=== PATIENT | female | born 1990 | race Caucasian/White ===

== ENCOUNTER → 2018-04-20 | Outpatient (CLI) | payer BC ==
[~2018-04-20] MED LIST: CYCL2DRO OD; PSEU-137 PO
--- NOTE | 2018-04-20 16:41 | Diagnostic Imaging Report ---
PROCEDURE: US Thyroid. TECHNIQUE: Multiple real-time grayscale images were obtained of the thyroid in various projections. INDICATION: Thyromegaly. FINDINGS: The right lobe of the thyroid measures 5.2 x 1.9 x 1.9 cm and the left lobe measures 5.4 x 1.6 x 1.7 cm. There is some mild parenchymal heterogeneity but no discrete thyroid mass is detected. The isthmus is 2 mm in thickness. IMPRESSION: Mild heterogeneity. No discrete thyroid mass is detected. Dictated by: Dictated on workstation # [id number]
== END ==
LOC: RAD 16:03
PROVIDERS: ATTEND Nurse Practitioner Family
DX: E01.0 Iodine-deficiency related diffuse (endemic) goiter (principal)
CPT/HCPCS: 36415; 76536; 84443; 86038; 86039; 86235